=== PATIENT | male | born 1960 | race Native Hawaiian/Other Pacific Islander ===

== ENCOUNTER 2020-08-22 10:56 | Outpatient (CLI) | payer BC | END 2020-08-22 21:57 | disposition home or self-care (01) | LOC: US 10:56 | PROVIDERS: ATTEND Nurse Practitioner | DX: R42 Dizziness and giddiness (principal) ==

== ENCOUNTER 2020-08-25 09:49 | Outpatient (CLI) | payer BC | END 2020-08-25 19:19 | disposition home or self-care (01) | LOC: CT 09:49 | PROVIDERS: ATTEND Nurse Practitioner | DX: I65.23 Occlusion and stenosis of bilateral carotid arteries (principal) | CPT/HCPCS: 36415; 82565; 84520; Q9963 ==

== ENCOUNTER 2021-05-09 10:02 | Outpatient (CLI) | payer BC | END 2021-05-09 23:00 | disposition home or self-care (01) | LOC: CT 10:02 | PROVIDERS: ATTEND Internal Medicine Sleep Medicine | DX: F17.210 Nicotine dependence, cigarettes, uncomplicated (principal) ==

== ENCOUNTER 2021-12-26 07:44 | Outpatient (CLI) | payer BC | END 2021-12-26 19:14 | disposition home or self-care (01) | LOC: CT 07:44 | PROVIDERS: ATTEND Nurse Practitioner | DX: R06.02 Shortness of breath (principal) | CPT/HCPCS: 36415; 82565; 84520 ==

== ENCOUNTER 2021-12-28 07:39 | Outpatient (CLI) | payer BC | END 2021-12-28 20:23 | disposition home or self-care (01) | LOC: CT 07:39 | PROVIDERS: ATTEND Nurse Practitioner | DX: R20.0 Anesthesia of skin (principal); R55 Syncope and collapse; R06.02 Shortness of breath | CPT/HCPCS: Q9963 ==

== ENCOUNTER 2022-01-02 07:59 | Outpatient (CLI) | payer BC | END 2022-01-02 19:16 | disposition home or self-care (01) | LOC: CT 07:59 | PROVIDERS: ATTEND Nurse Practitioner | DX: R20.0 Anesthesia of skin (principal) | CPT/HCPCS: 36415; 82565; 84520 ==

== ENCOUNTER 2022-01-30 08:55 | Outpatient (CLI) | payer BC | END 2022-01-30 18:53 | disposition home or self-care (01) | LOC: US 08:55 | PROVIDERS: ATTEND Nurse Practitioner | DX: K85.80 Other acute pancreatitis without necrosis or infection (principal) ==

== ENCOUNTER 2022-06-27 09:56 | Outpatient (CLI) | payer BC | END 2022-06-27 19:13 | disposition home or self-care (01) | LOC: MRI 09:56 | PROVIDERS: ATTEND Internal Medicine Gastroenterology | DX: F10.20 Alcohol dependence, uncomplicated (principal); R79.89 Other specified abnormal findings of blood chemistry; D72.828 Other elevated white blood cell count | CPT/HCPCS: 36415; 82565; 84520; A9576 ==

== ENCOUNTER 2022-07-02 15:19 | Outpatient (CLI) | payer BC | END 2022-07-02 19:00 | disposition home or self-care (01) | LOC: CT 15:19 | PROVIDERS: ATTEND Internal Medicine Medical Oncology | DX: F17.210 Nicotine dependence, cigarettes, uncomplicated (principal) ==

== ENCOUNTER 2023-05-23 12:11 | Outpatient (CLI) | payer OTHER | END 2023-05-23 19:20 | disposition home or self-care (01) | LOC: MRI 12:11 | PROVIDERS: ATTEND Physician Assistant | DX: M25.561 Pain in right knee (principal); M17.11 Unilateral primary osteoarthritis, right knee; Z96.651 Presence of right artificial knee joint; W19.XXXA Unspecified fall, initial encounter ==